=== PATIENT | female | born 1980 | race Caucasian/White ===

== ENCOUNTER 2016-12-07 06:49 | Inpatient (IN) | payer OTHER ==
[2016-12-07] VITALS (91 sets, daily range): BP systolic 94–144; BP diastolic 44–92; PULSE 68–113; RESP 18; TEMP 97.5–98.3
[~2016-12-07 06:49] MED LIST: Z.0.NO CURRENT MEDS
[2016-12-07] MEDS ORDERED: LACTATED RINGER'S 1000 ML INJ 1,000 ML IV PRN (07:39)
--- NOTE | 2016-12-07 07:39 | PD ---
HPI Chief Complaint Contractions and leaking fluid Date Seen: Dec 07, 2016 Time Seen: 07:35 Travel History International Travel<30 Days: No Contact w/Intl Traveler<30Days: No Known Affected Area: No History of Present Illness HPI 36-year-old who is at 40 weeks today comes in complaining of leaking fluid since 10:00 last night as well as intermittent contractions. She denies any antepartum complications. Group B strep is negative Para: 0 : 1 History Past Medical History Medical History: Denies Significant Hx Past Surgical History Narrative Surgical Breast augmentation Surgical History: No Previous Surgery Family History Family History: Negative Social History Alcohol Use: No Tobacco Use: No Substance Abuse: No Allergies-Medications (Allergen,Severity, Reaction): Coded Allergies: No Known Allergies (Verified , 08/28/10) Home Meds Reported Medications Miscellaneous (No Current Meds) [facility] Review of Systems Except as stated in HPI: all other systems reviewed are Neg Physical Exam Narrative GENERAL: Well-nourished, well-developed patient. SKIN: Warm and dry. HEAD: Normocephalic and atraumatic. EYES: No scleral icterus. No injection or drainage. ENT: No nasal drainage noted. Mucous membranes pink. Airway patent. NECK: Supple, trachea midline. No JVD. CARDIOVASCULAR: Regular rate and rhythm without murmurs, gallops, or rubs. RESPIRATORY: Breath sounds equal bilaterally. No accessory muscle use. BREASTS: Bilateral exam showed no masses , no retractions, no nipple discharge. ABDOMEN/GI: Abdomen soft, non-tender, bowel sounds present, no rebound, no guarding Gravid to [-] weeks size Fundal Height: [40-] GENITOURINARY: External Genitalia: intact and normal in appearance BUS glands: [Normal-] Cervix: [Mid position-] Dilatation: [-1-2] Effacement: [-80] Station: [-2-] Presentation: [-Vertex] Membranes: [ ruptured] Uterine Contractions: [-Irregular every 3-5] FHT's: Category: [-1] Baseline: [-140] Reactive: [Moderate-] Variability: [Moderate-] Decels: [Absent-] EXTREMITIES: No cyanosis or edema. BACK: Nontender without obvious deformity. No CVA tenderness. NEUROLOGICAL: Awake and alert. Motor and sensory grossly within normal limits. Five out of 5 muscle strength in all muscle groups. Normal speech. Data Data Vital Signs Reviewed: Yes MDM Plan 36-year-old 40 weeks today with positive amnisure and uterine contractions consistent with premature rupture membranes Plan on admission to labor, may need Pitocin augmentation Diagnosis Diagnosis: Primary Impression: Premature rupture of membranes Additional Impression: 40 weeks gestation of Disposition: 01 DISCHARGE HOME Cristina Handley MD Dec 07, 2016 07:38
[2016-12-07] MEDS ORDERED: MINERAL OIL 10 ML VIAL TOPICAL PRN (07:45)
[2016-12-07] MEDS ORDERED: CITRIC ACID-SODIUM CITRATE LIQ 30 ML UDC PO SCH (07:45)
[2016-12-07] MEDS ORDERED: SODIUM CHLORID 0.9% 500 ML INJ 500 ML IV PRN (07:45)
[2016-12-07] MEDS ORDERED: OXYTOCIN 30 UNITS-500ML PREMIX 500 ML IV ONE (07:45)
[2016-12-07] MEDS ORDERED: OXYTOCIN 30 UNITS-500ML PREMIX 500 ML IV SCH (07:45)
[2016-12-07] MEDS ORDERED: LIDOCAINE HCL 1% 50 ML VIAL I-DERMAL PRN (07:45)
[2016-12-07] MEDS ORDERED: LIDOCAINE HCL 1% 50 ML VIAL INFIL PRN (07:45)
[2016-12-07] MEDS ORDERED: ONDANSETRON HCL 4 MG/2 ML VIAL IV PRN (07:45)
[2016-12-07] MEDS ORDERED: SODIUM CHLOR 0.9% 1000 ML INJ 1,000 ML IV PRN (07:59)
[2016-12-07] MEDS: LACTATED RINGER'S 1000 ML INJ 1,000 ML IV SCH ×2 (08:07→19:10)
[2016-12-07 08:46] LABS: BACTERIA, URINE OCC /hpf; BLOOD, URINE MOD (NEG); COMMENT (UR) CULTURE INDICATED; CULTURE IF INDICATED CULTURE INDICATED; GLUCOSE,URINE NEG (NEG); KETONE, URINE NEG (NEG); MUCUS URINE FEW /lpf (OCC); NITRITE,URINE NEG (NEG); PH, URINE 6.5 (5.0-8.5); SQUAMOUS EPITHELIAL CELL URINE 2 /hpf (0-5); URINE COLOR YELLOW (YELLW/STRAW)
[2016-12-07 08:57] LABS: AUTOMATED NEUTROPHIL # 9.8 TH/MM3 (1.8-7.7); BASOPHIL % 0.2 % (0.0-2.0); EOSINOPHIL % 0.1 % (0.0-4.0); HEMATOCRIT 33.9 % (35.0-46.0); HEMO FLAGS DIFF FINAL; LYMPH % 17.8 % (9.0-44.0); LYMPHOCYTE # 2.3 TH/MM3 (1.0-4.8); MEAN CORPUSCULAR HEMOGLOBIN 27.9 PG (27.0-34.0); MEAN CORPUSCULAR HGB CONC 33.3 % (32.0-36.0); NEUT % 76.9 % (16.0-70.0); PLATELET COUNT 186 TH/MM3 (150-450); RED BLOOD COUNT 4.04 MIL/MM3 (4.00-5.30); RED CELL DISTRIBUTION WIDTH 13.6 % (11.6-17.2); WHITE BLOOD COUNT 12.8 TH/MM3 (4.0-11.0)
[2016-12-07] MEDS ORDERED: BUPIVACAINE HCL PF 0.25% 10 ML VIAL ONE (13:39)
[2016-12-07] MEDS ORDERED: MEASLES, MUMPS, RUBELLA VACCINE 0.5 ML VIAL SQ ONE (16:00)
[2016-12-07] MEDS ORDERED: DIPHTH/TETANUS/ACEL PERTUSSIS (BOOSTER) 0.5 ML VIAL/PFS IM ONE (16:00)
--- NOTE | 2016-12-07 17:03 | PD.LABORPN ---
Subjective Subjective patient now 10 cm and comfortable on Epidural. Labor at 10 cm then start pushing Objective Vital Signs Vital Signs Date Time Temp Pulse Resp B/P Pulse Ox O2 Delivery O2 Flow Rate FiO2 12/07/16 16:29 18 12/07/16 16:29 98.3 12/07/16 16:26 92 99/60 12/07/16 16:25 99 12/07/16 16:25 100 12/07/16 16:20 104 12/07/16 16:20 101 12/07/16 16:15 86 12/07/16 16:15 88 12/07/16 15:55 104 12/07/16 15:55 109 12/07/16 15:50 91 12/07/16 15:50 95 12/07/16 15:45 84 12/07/16 15:45 85 12/07/16 15:30 18 12/07/16 15:30 85 12/07/16 15:25 83 12/07/16 15:25 82 12/07/16 15:20 84 12/07/16 15:20 84 12/07/16 15:15 84 94/60 12/07/16 15:15 87 12/07/16 15:15 86 12/07/16 15:00 86 12/07/16 15:00 82 12/07/16 15:00 91 103/52 12/07/16 14:55 81 12/07/16 14:55 80 12/07/16 14:50 75 12/07/16 14:50 76 12/07/16 14:45 80 12/07/16 14:45 79 100/60 12/07/16 14:45 75 12/07/16 14:42 18 12/07/16 14:40 83 12/07/16 14:40 84 12/07/16 14:35 82 12/07/16 14:35 81 12/07/16 14:30 87 12/07/16 14:30 90 12/07/16 14:30 88 95/59 12/07/16 14:28 98.1 12/07/16 14:25 83 12/07/16 14:25 83 12/07/16 14:20 80 12/07/16 14:20 81 12/07/16 14:15 89 12/07/16 14:15 85 107/60 12/07/16 14:15 81 12/07/16 14:10 89 12/07/16 14:10 92 12/07/16 14:09 18 12/07/16 14:05 87 12/07/16 14:05 88 119/61 12/07/16 14:05 87 12/07/16 14:00 85 105/57 12/07/16 14:00 85 12/07/16 14:00 98 12/07/16 13:55 93 12/07/16 13:55 96 106/61 12/07/16 13:55 96 12/07/16 13:50 84 12/07/16 13:50 94 12/07/16 13:50 93 18 128/61 12/07/16 13:45 79 12/07/16 13:45 93 119/44 12/07/16 13:45 91 12/07/16 13:42 74 124/80 12/07/16 13:40 82 12/07/16 13:40 81 12/07/16 13:35 90 12/07/16 13:35 89 12/07/16 13:30 83 12/07/16 13:29 84 144/92 12/07/16 13:25 91 12/07/16 13:25 90 12/07/16 13:20 84 12/07/16 13:20 84 12/07/16 13:15 82 12/07/16 13:15 82 12/07/16 12:55 74 12/07/16 12:55 73 12/07/16 12:52 86 122/80 12/07/16 12:50 97.7 18 12/07/16 12:45 77 12/07/16 12:10 79 12/07/16 12:05 72 12/07/16 12:00 82 12/07/16 12:00 18 12/07/16 11:58 75 115/73 12/07/16 11:55 83 12/07/16 11:50 79 12/07/16 11:45 75 12/07/16 10:57 68 114/76 12/07/16 10:57 98.0 18 12/07/16 10:55 71 12/07/16 10:50 71 12/07/16 10:45 82 12/07/16 10:10 80 102/66 12/07/16 10:10 77 12/07/16 10:05 80 12/07/16 10:00 86 12/07/16 09:44 18 12/07/16 09:42 84 98/56 12/07/16 09:40 85 12/07/16 09:35 72 12/07/16 09:35 71 12/07/16 09:30 74 12/07/16 09:30 77 12/07/16 09:11 97.5 18 12/07/16 09:10 68 12/07/16 09:10 80 12/07/16 09:10 80 104/59 12/07/16 09:05 69 12/07/16 09:05 70 Objective Pelvic Exam: Cervix: [-] Dilatation: 10 Effacement: [-] Station: 0 Presentation: vtx Membranes: [intact or ruptured] Uterine Contractions: [-] FHT's: Category: 1 Baseline: [-] Reactive: [-] Variability: [-] Decels: [-] Assessment/Plan Problem List: (1) 40 weeks gestation of Pipo Noble MD Dec 07, 2016 17:03
[2016-12-07] MEDS ORDERED: ePHEDrine/NS 25 MG/5 ML SYR IV PRN (17:15)
[2016-12-07] MEDS ORDERED: NO SYSTEM NARCOTICS PRN (17:15)
[2016-12-07] MEDS ORDERED: DO NOT ADMINISTER ANTICOAGULANTS PRN (17:15)
[2016-12-07] MEDS ORDERED: fentaNYL 2MCG-BUPIV 0.125% 100 ML EPIDURAL SCH (17:15)
--- NOTE | 2016-12-07 19:12 | PD.OB.DELI ---
Delivery Date: Dec 07, 2016 Anesthesia: Epidural Episiotomy: Right mediolateral Vaginal Delivery: Normal Presentation: Occiput anterior Nuchal Cord: None Delayed cord clamping (45 sec): Yes Infant: Female, Single One Minute : 9 Five Minute : 9 Weight: 7# 12 oz Placenta: Spontaneous delivery, Intact, 3 vessel cord Laceration: Episiotomy, 2 deg Repair: Chromic interrupted Pipo Noble MD Dec 07, 2016 19:12
[2016-12-07] MEDS ORDERED: SODIUM CHLORIDE 0.9% FLUSH 10 ML FLUSH IV FLUSH PRN (19:15)
[2016-12-07] MEDS ORDERED: ALUMINUM/MAGNESIUM/SIMETH 30 ML CUP PO PRN (19:15)
[2016-12-07] MEDS ORDERED: ZOLPIDEM TARTRATE 5 MG TAB PO PRN (19:15)
[2016-12-07] MEDS ORDERED: ACETAMINOPHEN 325 MG TAB PO PRN (19:15)
[2016-12-07] MEDS ORDERED: ONDANSETRON ODT 4 MG TAB PO PRN (19:15)
[2016-12-07] MEDS ORDERED: oxyCODONE/ACETAMINOPHEN 5 MG/325 MG TAB PO PRN (19:15)
[2016-12-07] MEDS ORDERED: BENZOCAINE 20% TOPICAL SPRAY 60 ML CAN TOPICAL PRN (19:15)
[2016-12-07] MEDS ORDERED: WITCH HAZEL 50%/GLYCERIN 12.5% 40 PAD JAR TOPICAL PRN (19:15)
[2016-12-07] MEDS ORDERED: METHYLERGONOVINE MALEATE 0.2 MG/ML VIAL IM ONE (19:30)
[2016-12-07] MEDS: IBUPROFEN 600 MG TAB PO PRN (19:48)
[2016-12-07] MEDS ORDERED: SODIUM CHLORIDE 0.9% FLUSH 10 ML FLUSH IV FLUSH SCH (21:00)
[2016-12-07] MEDS: oxyCODONE/ACETAMINOPHEN 5 MG/325 MG TAB PO PRN (21:06)
[2016-12-08] MEDS: IBUPROFEN 600 MG TAB PO PRN ×4 (01:55→21:18)
[2016-12-08] MEDS: oxyCODONE/ACETAMINOPHEN 5 MG/325 MG TAB PO PRN ×4 (01:55→21:17)
[2016-12-08 08:30] VITALS: BP 97/68; PULSE 80; RESP 16; TEMP 98.5
--- NOTE | 2016-12-08 12:44 | HHI.OB ---
Subjective Post Day: 1 Remarks doing well after delivery Objective Vitals/I&O Vital Signs Date Time Temp Pulse Resp B/P Pulse Ox O2 Delivery O2 Flow Rate FiO2 12/08/16 08:30 98.5 80 16 97/68 12/07/16 21:00 98.3 76 18 12/07/16 21:00 105/64 12/07/16 20:07 85 118/65 12/07/16 19:47 86 12/07/16 19:47 127/67 12/07/16 19:45 86 18 127/67 12/07/16 19:15 18 12/07/16 19:00 90 12/07/16 19:00 127/74 12/07/16 18:54 86 123/70 12/07/16 18:50 98.2 18 12/07/16 18:45 113 118/63 12/07/16 18:30 84 115/65 12/07/16 18:20 88 12/07/16 18:15 96 124/68 12/07/16 18:15 85 12/07/16 17:50 88 12/07/16 17:45 89 114/76 12/07/16 17:45 85 12/07/16 17:40 91 12/07/16 17:35 94 12/07/16 17:30 81 12/07/16 17:30 81 106/91 12/07/16 17:30 81 12/07/16 17:10 78 12/07/16 17:10 79 12/07/16 17:07 18 12/07/16 17:05 81 12/07/16 17:05 83 12/07/16 17:00 80 12/07/16 17:00 87 109/72 12/07/16 17:00 91 12/07/16 16:29 18 12/07/16 16:29 98.3 12/07/16 16:26 92 99/60 12/07/16 16:25 99 12/07/16 16:25 100 12/07/16 16:20 104 12/07/16 16:20 101 12/07/16 16:15 86 12/07/16 16:15 88 12/07/16 15:55 104 12/07/16 15:55 109 12/07/16 15:50 91 12/07/16 15:50 95 12/07/16 15:45 84 12/07/16 15:45 85 12/07/16 15:30 18 12/07/16 15:30 85 12/07/16 15:25 83 12/07/16 15:25 82 12/07/16 15:20 84 12/07/16 15:20 84 12/07/16 15:15 84 94/60 12/07/16 15:15 87 12/07/16 15:15 86 12/07/16 15:00 86 12/07/16 15:00 82 12/07/16 15:00 91 103/52 12/07/16 14:55 81 12/07/16 14:55 80 12/07/16 14:50 75 12/07/16 14:50 76 12/07/16 14:45 80 12/07/16 14:45 79 100/60 12/07/16 14:45 75 12/07/16 14:42 18 12/07/16 14:40 83 12/07/16 14:40 84 12/07/16 14:35 82 12/07/16 14:35 81 12/07/16 14:30 87 12/07/16 14:30 90 12/07/16 14:30 88 95/59 12/07/16 14:28 98.1 12/07/16 14:25 83 12/07/16 14:25 83 12/07/16 14:20 80 12/07/16 14:20 81 12/07/16 14:15 89 12/07/16 14:15 85 107/60 12/07/16 14:15 81 12/07/16 14:10 89 12/07/16 14:10 92 12/07/16 14:09 18 12/07/16 14:05 87 12/07/16 14:05 88 119/61 12/07/16 14:05 87 12/07/16 14:00 85 105/57 12/07/16 14:00 85 12/07/16 14:00 98 12/07/16 13:55 93 12/07/16 13:55 96 106/61 12/07/16 13:55 96 12/07/16 13:50 84 12/07/16 13:50 94 12/07/16 13:50 93 18 128/61 12/07/16 13:45 79 12/07/16 13:45 93 119/44 12/07/16 13:45 91 12/07/16 13:42 74 124/80 12/07/16 13:40 82 12/07/16 13:40 81 12/07/16 13:35 90 12/07/16 13:35 89 12/07/16 13:30 83 12/07/16 13:29 84 144/92 12/07/16 13:25 91 12/07/16 13:25 90 12/07/16 13:20 84 12/07/16 13:20 84 12/07/16 13:15 82 12/07/16 13:15 82 12/07/16 12:55 74 12/07/16 12:55 73 12/07/16 12:52 86 122/80 12/07/16 12:50 97.7 18 12/07/16 12:45 77 Objective Remarks GENERAL: Well-nourished, well-developed patient. ABDOMEN/GI: Abdomen soft, non-tender. Fundus: Firm, non-tender at umbilicus. GENITOURINARY: Light to moderate bleeding. EXTREMITIES: No cyanosis or edema, non-tender, without signs of DVT. Medications and IVs Current Medications Medications (Trade) Dose Ordered Sig/Astrid Route Start Time Stop Time Status Last Admin (Zofran Inj) 4 mg Q6H PRN IV 12/07/16 07:45 Miscellaneous Information No systemic narcotics to be given except... UNSCH PRN .XX 12/07/16 17:15 12/08/16 17:14 Miscellaneous Information DO NOT ADMINISTER ANY ANTICOAGUL... UNSCH PRN .XX 12/07/16 17:15 12/08/16 17:14 (NS Flush) 2 ml BID IV FLUSH 12/07/16 21:00 (NS Flush) 2 ml UNSCH PRN IV FLUSH 12/07/16 19:15 (Tylenol) 650 mg Q4H PRN PO 12/07/16 19:15 (Motrin) 600 mg Q6H PRN PO 12/07/16 19:15 12/08/16 08:15 (Percocet 5-325 Mg) 1 tab Q4H PRN PO 12/07/16 19:15 12/08/16 08:15 (Percocet 5-325 Mg) 2 tab Q4H PRN PO 12/07/16 19:15 (Americaine 20% Top Spr) 1 spray Q4H PRN TOPICAL 12/07/16 19:15 12/07/16 21:06 (Tucks Pads) 1 applic QID PRN TOPICAL 12/07/16 19:15 12/07/16 21:06 (Caroline-Colace) 2 tab Q12H PRN PO 12/07/16 19:15 (Ambien) 5 mg HS PRN PO 12/07/16 19:15 (Mag-Al Plus Susp Liq) 15 ml Q8H PRN PO 12/07/16 19:15 (Zofran Odt) 4 mg Q6H PRN PO 12/07/16 19:15 Assessment/Plan Problem List: (1) 40 weeks gestation of (2) Spontaneous vaginal delivery Discharge Planning alvin in Pipo Gambino MD Dec 08, 2016 12:44
[2016-12-08] MEDS ORDERED: OXYC1TAB63 PO (12:45)
--- NOTE | 2016-12-08 12:46 | HHI.DCPOC ---
Discharge Care Plan Diagnosis: (1) Spontaneous vaginal delivery Report Symptoms to Your Doctor -Temperature above 100.5 degrees -Redness, of incision or excessive or foul smelling drainage -Unusual pain or calf pain -Increased vaginal bleeding -Painful or difficulty urinating -Feelings of extreme sadness or anxiety after 2 weeks Goals to Promote Your Health * To prevent worsening of your condition and complications * To maintain your health at the optimal level Directions to Meet Your Goals Take your medications as prescribed Follow your dietary instruction Follow activity as directed Ensure plenty of rest for recovery Drink fluids for hydration Keep your appointments as scheduled Take your immunizations and boosters as scheduled If your symptoms worsen call your PCP, if no PCP go to Urgent Care Center or Emergency Room Smoking is Dangerous to Your Health. Avoid second hand smoke Call the 24-hour crisis hotline for domestic abuse at Pipo Noble MD Dec 08, 2016 12:46
[2016-12-08 20:00] VITALS: BP 101/60; PULSE 68; RESP 18; TEMP 98.1
[2016-12-09] MEDS: IBUPROFEN 600 MG TAB PO PRN ×3 (03:41→16:01)
[2016-12-09] MEDS: DOCUSATE SODIUM 50 MG/SENNA 8.6 MG TAB PO PRN ×2 (03:41→16:01)
[2016-12-09] MEDS: oxyCODONE/ACETAMINOPHEN 5 MG/325 MG TAB PO PRN ×2 (03:41→10:06)
--- NOTE | 2016-12-09 06:53 | HHI.OB ---
Subjective Post Day: 2 Remarks doing well Objective Vitals/I&O Vital Signs Date Time Temp Pulse Resp B/P Pulse Ox O2 Delivery O2 Flow Rate FiO2 12/09/16 04:41 18 12/09/16 04:41 18 12/08/16 20:00 98.1 12/08/16 20:00 68 18 101/60 12/08/16 08:30 98.5 80 16 97/68 Objective Remarks GENERAL: Well-nourished, well-developed patient. ABDOMEN/GI: Abdomen soft, non-tender. Fundus: Firm, non-tender at umbilicus. GENITOURINARY: Light to moderate bleeding. EXTREMITIES: No cyanosis or edema, non-tender, without signs of DVT. Medications and IVs Current Medications Medications (Trade) Dose Ordered Sig/Astrid Route Start Time Stop Time Status Last Admin (Zofran Inj) 4 mg Q6H PRN IV 12/07/16 07:45 (NS Flush) 2 ml BID IV FLUSH 12/07/16 21:00 (NS Flush) 2 ml UNSCH PRN IV FLUSH 12/07/16 19:15 (Tylenol) 650 mg Q4H PRN PO 12/07/16 19:15 (Motrin) 600 mg Q6H PRN PO 12/07/16 19:15 12/09/16 03:41 (Percocet 5-325 Mg) 1 tab Q4H PRN PO 12/07/16 19:15 12/09/16 03:41 (Percocet 5-325 Mg) 2 tab Q4H PRN PO 12/07/16 19:15 (Americaine 20% Top Spr) 1 spray Q4H PRN TOPICAL 12/07/16 19:15 12/07/16 21:06 (Tucks Pads) 1 applic QID PRN TOPICAL 12/07/16 19:15 12/07/16 21:06 (Caroline-Colace) 2 tab Q12H PRN PO 12/07/16 19:15 12/09/16 03:41 (Ambien) 5 mg HS PRN PO 12/07/16 19:15 (Mag-Al Plus Susp Liq) 15 ml Q8H PRN PO 12/07/16 19:15 (Zofran Odt) 4 mg Q6H PRN PO 12/07/16 19:15 Assessment/Plan Problem List: (1) 40 weeks gestation of (2) Spontaneous vaginal delivery Discharge Planning dc today follow up 2 weeks Pipo oNble MD Dec 09, 2016 06:53
--- NOTE | 2016-12-09 06:55 | HHI.DS ---
Admission Date Dec 07, 2016 at 07:43 Discharge Date: Dec 09, 2016 Admitting Diagnosis Diagnosis: (1) Spontaneous vaginal delivery Diagnosis: Principal Delivery Date: Dec 07, 2016 Vaginal Delivery: Normal, Spontaneous : Female, Single Brief History 36-year-old who is at 40 weeks today comes in complaining of leaking fluid since 10:00 last night as well as intermittent contractions. She denies any antepartum complications. Group B strep is negative Hospital Course on 12/07 and pt did well and DC home ppd#2 Pt Condition on Discharge: Good Discharge Disposition: Discharge Home Discharge Instructions Diet Instructions: Iron Rich Diet Activities You Can Perform: Pelvic Rest Activities to Avoid: Driving for 24 hrs Follow up Referrals: [facility] INST[facility]ER - 2 Weeks @ [facility] with Pipo Noble MD New Medications: Oxycodone-Acetaminophen (Oxycodone-Acetaminophen) 5-325 mg Tab 1 TAB PO Q4H PRN PAIN SCALE 3 TO 5 #20 TAB Discontinued Medications: Miscellaneous (No Current Meds) [facility] Pip[facility] MD Dec 09, 2016 06:55
[2016-12-09 07:30] VITALS: BP 111/78; PULSE 76; RESP 18; TEMP 98.1
== END 2016-12-09 16:30 | disposition home or self-care (01) | DRG 775 ==
LOC: HOBED 06:49 → H2EA 07:43 → H1EA 20:22
PROVIDERS: ADMIT Obstetrics & Gynecology; ATTEND Obstetrics & Gynecology
PROC: 10E0XZZ Delivery of Products of Conception, External Approach (ICD-10-PCS; principal; 2016-12-07)
PROC: 0KQM0ZZ Repair Perineum Muscle, Open Approach (ICD-10-PCS; 2016-12-07)
PROC: 0W8NXZZ Division of Female Perineum, External Approach (ICD-10-PCS; 2016-12-07)
PROC: 3E0S3CZ (ICD-10-PCS; 2016-12-07)
PROC: 00HU33Z Insertion of Infusion Device into Spinal Canal, Percutaneous Approach (ICD-10-PCS; 2016-12-07)
DX: O42.02 Full-term premature rupture of membranes, onset of labor within 24 hours of rupture (principal); O70.1 Second degree perineal laceration during delivery; Z37.0 Single live birth; Z3A.40 40 weeks gestation of pregnancy
CPT/HCPCS: 81001; 84112; 85025; 86900; 86901; 87086; 90715; 99285; J2210; J2590; J3010; J7120